=== PATIENT | male | born 1975 | race Caucasian/White ===

== ENCOUNTER 2018-09-19 19:34 | Emergency (ER) | payer SELFPAY ==
[~2018-09-19] VITALS: Ht 162.6 cm; Wt 85.0 kg
[2018-09-20] MEDS ORDERED: LIDOCAINE HCL/PF 1% 2ML VIAL INFIL ONE (00:30)
[2018-09-20 01:56] VITALS: BP 117/72
== END 2018-09-20 00:15 | disposition home or self-care (01) ==
LOC: ER 19:34
DX: L03.011 Cellulitis of right finger (principal)
CPT/HCPCS: 99283; J3490